=== PATIENT | male | born 1990 | race Caucasian/White ===

== ENCOUNTER 2021-03-05 14:03 | Outpatient (CLI) | payer OTHER, SELFPAY | END 2021-03-05 14:04 | disposition home or self-care (01) | LOC: ANHAUDIO 14:05 | PROVIDERS: PCP Internal Medicine Gastroenterology; Visit Provider Internal Medicine Gastroenterology | DX: H90.3 Sensorineural hearing loss, bilateral (principal) | CPT/HCPCS: 92557; 92567 ==

== ENCOUNTER 2021-04-03 07:58 | Outpatient (RCR) | payer OTHER, SELFPAY | END 2021-04-03 23:59 | disposition home or self-care (01) | LOC: ANHAUDIO 07:58 | PROVIDERS: PCP Internal Medicine Gastroenterology; Visit Provider Internal Medicine Gastroenterology | DX: Z46.1 Encounter for fitting and adjustment of hearing aid (principal) | CPT/HCPCS: V5160; V5261 ==

== ENCOUNTER 2021-09-19 15:07 | Outpatient (RCR) | payer OTHER, SELFPAY | END 2021-09-19 23:59 | disposition home or self-care (01) | LOC: ANHAUDIO 15:07 | PROVIDERS: PCP Internal Medicine Gastroenterology; Visit Provider Internal Medicine Gastroenterology | DX: Z46.1 Encounter for fitting and adjustment of hearing aid (principal) | CPT/HCPCS: 99199 ==